=== PATIENT | female | born 1970 | race Caucasian/White ===

== ENCOUNTER 2020-12-06 07:09 | Inpatient (IN) | payer OTHER ==
[~2020-12-06] VITALS: Ht 147.3 cm; Wt 123.8 kg
[2020-12-06 07:22] VITALS: Ht 147.3 cm; Wt 123.8 kg
--- NOTE | 2020-12-06 07:31 | NUR ---
PT PLACED IN BED 7 FOR EVAL. PRIMARY RN JORDYN HOFFMANN.
--- NOTE | 2020-12-06 07:37 | NUR ---
DR. ALVARADO AT BEDSIDE, PT DISCLOSES SHE'S HAD CHEST PAIN FOR 1 HR. REMARKS PROBLEMS WITH SHORTNESS OF BREATH SINCE OCTOBER. STOPPED TAKING HER BLOOD PRESSURE MEDS 2 YEARS AGO
[2020-12-06 07:59] LABS: PLATELET COUNT 272 x10^3mcL (179-408)
--- NOTE | 2020-12-06 07:59 | NUR ---
RADIOLOGY AT BEDSIDE, PCXR IN PROGRESS. BLOODS DRAWN, MEDICATED WITH LASIX ORDERED.
[2020-12-06 08:07] LABS: RED CELL DISTRIBUTION WIDTH 15.6 % (12.3-17.7)
--- NOTE | 2020-12-06 08:09 | NUR ---
PT AMBULATED TO RESTROOM, URINE SPEC OBTAINED. UPON RETURNING TO [facility], WAS EXTREMELY DYSPNEIC AND PLACED BACK ON MONITOR. 02 SAT 95% TELE MONITOR ALSO REAPPLIED. ST IN LOW 100'S , TIME PROGRESSED RHYTHM WENT DOWN TO HIGH 90'S.
[2020-12-06 08:15] LABS: CALCIUM 8.7 mg/dL (8.5-10.1); CARBON DIOXIDE 21.2 mmol/L (21-32); CHLORIDE SERUM 106 mmol/L (98-107); CREATININE SERUM 0.8 mg/dL (0.6-1.0); GFR1 > 60 mL/min; GLUCOSE SERUM 132 mg/dL (74-106); POTASSIUM SERUM 3.6 mmol/L (3.5-5.1); SODIUM SERUM 137 mmol/L (136-145)
[2020-12-06 08:20] LABS: ALKALINE PHOSPHATASE 135 U/L (46-116); ALT/SGPT 46 U/L (14-59); AST/SGOT 29 U/L (15-37); BILIRUBIN TOTAL 0.6 mg/dL (0.20-1.00); TOTAL PROTEIN, SERUM 7.6 g/dL (6.4-8.2)
[2020-12-06 08:29] LABS: ALBUMIN 3.1 g/dL (3.4-5.0)
--- NOTE | 2020-12-06 08:45 | NUR ---
ASST OOB TO RESTROOM, DIURESED EVEN MORE AFTER LASIX IVP
[2020-12-06 08:51] LABS: AMPHETAMINE QUAL UR POSITIVE (See below)
--- NOTE | 2020-12-06 09:17 | NUR ---
COMMODE EMPTIED OF 50
--- NOTE | 2020-12-06 09:45 | NUR ---
PT REMARKS HAS SOME LEG CRAMPING AFTER MEDICATED WITH LASIX. CONTINUES TO DIURESIS WELL
--- NOTE | 2020-12-06 10:12 | NUR ---
BP DOWN SINCE MEDICATED WITH VASOTEC IVP 171/98
[2020-12-06 11:03] LABS: T3 TOTAL 1.35 ng/mL
[2020-12-06 11:05] LABS: MAGNESIUM 1.9 mg/dL (1.8-2.4); PHOSPHOROUS 3.8 mg/dL (2.5-4.9)
[2020-12-06 11:07] LABS: CHOLESTEROL/HDL RATIO 3.3
[2020-12-06 11:12] LABS: FREE T4 1.52 ng/dL (0.76-1.46); FREE THYROXINE INDEX 2.2 ug/dL (1.4-4.5); T4(THYROXINE) 6.2 ug/dL (4.7-13.3)
--- NOTE | 2020-12-06 11:55 | NUR ---
OBSERVED NAPPING QUIETLY AT THIS TIME.
--- NOTE | 2020-12-06 13:15 | NUR ---
LUNCH SERVED AT THIS TIME. SITTING UP AT BEDSIDE EATING.
--- NOTE | 2020-12-06 13:50 | NUR ---
REPORT CALLED TO [facility] IN 2ND FLOOR
[2020-12-06 14:21] VITALS: BP 173/104
--- NOTE | 2020-12-06 14:30 | NUR ---
RECIEVED PT FROM ER NURSE TELE#2. SINUS TACHY HR 102. PT REPORTS NO CHEST PAIN. A/OX4 BREATHING E/U ON RA. IN NO ACUTE RESPIRATORY DISTRESS. PULSE PALPABLE, EDEMA BLE 1+. ABDOMEN SOFT ROUND NONTENDER TO PALPATE. GENERALIZED WEAKNESS BUT AMBULATORY AT BASELINE. PT ABLE TO AMBULATE TO BATHROOM. SKIN IS INTACT. NO FURTHER CONCERNS VOICED AT THIS TIME. BED IN LOWEST POSITION, CALL LIGHT IN REACH. VITALS TAKEN AT ADMISSIONS: HR: 102 RR: 20 BP: 173/104 O2: RA 100%
[2020-12-06 15:00] VITALS: BP 173/104
[2020-12-06 16:42] VITALS: BP 163/103
--- NOTE | 2020-12-06 18:40 | NUR ---
PT SLEEPING EASILY AROUSEABLE. A/OX4, BREATHING E/U ON RA. IN NO ACUTE RESPIRATORY DISTRESS. PT REQUESTS FOR JUICE AND EDUCATED ON STRICT I&O'S D/T FLUID RETENTION. PT UNDERSTOOD AND GAVE SOME ICE CHIPS INSTEAD. PT REPORTS NO PAIN OR SHORTNESS OF BREATH AT THIS TIME. IV TO SL PATENT, CDI. NO FURTHER CONCERNS VOICED AT THIS TIME. BED IN LOWEST POSITION, CALL LIGHT IN REACH.
--- NOTE | 2020-12-06 19:36 | NUR ---
RECIEVED PT FROM AM RN. PT IN BED RESTING A&OX4, BREATHING E/U ON ROOM AIR.TOLERATING WELL, DENIES SOB. LUNG SOUNDS DIMINISHED DILIP. S1S2 HEARD, DENIES CHEST PAIN. BOWEL SOUNDS ACTIVE, ABDOMEN SOFT. PT AMBULATORY, BRP. DENIES WEAKNESS/DIZZINESS WHEN AMBULATING. TELE#2 NSR. PT HAS IV TO LH INTACT AND PATENT, SALINE LOCKED. PT HAS NO CONCERNS AT THIS TIME. CALL LIGHT IN REACH. WILL CONTINUE TO MONITOR.
[2020-12-06 20:30] VITALS: BP 139/70
[2020-12-07 05:44] VITALS: BP 166/92
--- NOTE | 2020-12-07 06:29 | NUR ---
PT IN BED RESTING. PT REMAINED STABLE THROUGHOUT THE NIGHT. NO SIGNIFICANT CHANGES. PT REMAINS ON ROOM AIR, TOLERATING WELL,SATTING WELL DENIES SOB. PTS IV TO LEFT HAND REMAINS INTACT AND PATENT, SALINE LOCKED. ALL NEEDS WERE MET DURING THIS SHIFT. CALL LIGHT IN REACH. WILL ENDORSE CARE TO AM RN.
[2020-12-07 06:45] LABS: CALCIUM 8.1 mg/dL (8.5-10.1); CARBON DIOXIDE 28.8 mmol/L (21-32); CHLORIDE SERUM 106 mmol/L (98-107); GFR1 > 60 mL/min; GLUCOSE SERUM 115 mg/dL (74-106); POTASSIUM SERUM 3.6 mmol/L (3.5-5.1); SODIUM SERUM 140 mmol/L (136-145)
[2020-12-07 07:09] LABS: BASOPHIL % 0.9 % (0.2-1.3); PLATELET COUNT 288 x10^3mcL (179-408)
[2020-12-07 07:14] LABS: RED CELL DISTRIBUTION WIDTH 16.1 % (12.3-17.7)
--- NOTE | 2020-12-07 07:20 | NUR ---
RECIEVED REPORT FROM CORRUGATOR OPERATOR HELPER RN PT IN BED RESTING, PT AAOX4. TELE MONITOR #2 SR O2 SATURATION AT 98% VIA ROOM AIR. IV SITE LT HAND SITE CLEAN, DRY AND INTACT. BED AT LOWEST POSITION CALL LIGHT WITHIN REACH WILL CONTINUE TO MONITOR.
--- NOTE | 2020-12-07 07:58 | NUR ---
RECIEVED REPORT FROM [employer] NET DEVELOPER RN PT IN BED RESTING, PT AAOX4. TELE MONITOR #2 SR O2 SATURATION AT 98% VIA ROOM AIR. IV SITE LT HAND SITE CLEAN, DRY AND INTACT. BED AT LOWEST POSITION CALL LIGHT WITHIN REACH WILL CONTINUE TO MONITOR.
[2020-12-07 08:09] VITALS: BP 166/96
--- NOTE | 2020-12-07 09:00 | NUR ---
RECIEVED CALL FROM [employer] TECH REQUIRED ORDER CHANGE FOR A DVT REQUEST FROM ARTERIAL US TO VASCULAR US. MADE TAMMY FREY AWARE, RECEIVED ORDER FOR VASCULAR ULTRASOUND AND TO DISCONTINUE ARTERIAL US. ORDERS READ BACK AND VERAFIED, NOTED AND CARRIED OUT.
[2020-12-07 11:44] VITALS: BP 144/90
--- NOTE | 2020-12-07 13:38 | NUR ---
PT REQUESTED SHOWER MADE DELI CLERK SHANTE AWARE ORDER PLACED FOR ABILITY TO SHOWER. ORDER READ BACK AND VERAFIED, NOTED, AND CARREIED OUT.
--- NOTE | 2020-12-07 13:41 | NUR ---
ECHO PROCEDURE TAKING PLACE, PT CALM NO ACUTE DISTRESS NOTED AT THIS THIS TIME.
--- NOTE | 2020-12-07 14:00 | NUR ---
VASCULAR US PROCEDURE COMPLETED, PT CALM NO ACUTE DISTRESS NOTED AT THIS THIS TIME. BED AT LOWEST POSITION, CALL LIGHT WITHIN REACH WILL CONTINUE TO MONITOR.
--- NOTE | 2020-12-07 14:15 | NUR ---
ECHO PROCEDURE TAKING PLACE PT CALM, NO ACUTE DISTRESS NOTED. WILL CONTINUE TO MONITOR.
--- NOTE | 2020-12-07 14:45 | NUR ---
ECHO COMPLETED PT CALM NO ACUTE DISTRESS NOTED RESTING IN BED, BED AT LOWEST POSITION, CALL LIGHT WITIN REACH WILL CONTINUE TO MONITOR.
[2020-12-07 16:06] VITALS: BP 151/96
--- NOTE | 2020-12-07 18:43 | NUR ---
PT RESTING IN BED, NO ACUTE DISTRESS NOTED AT THIS TIME. DENIES SOB, DENIES CHEST PAIN/PRESSURE. 02 SATURATION AT 98% VIA ROOM AIR, IV SITE TO LEFT HAND SITE CLEAN, DRY AND INTACT. BED AT LOWEST POSITION, CALL LIGHT WITHIN REACH ALL NEEDS MET. WILL ENDORSE CARE TO INCOMING NURSE.
--- NOTE | 2020-12-07 19:43 | NUR ---
[facility]SPORT PERSONNEL CAME TO TRANSPORT PATIENT TO [facility]. PATIENT ON 5 L N/C. THE WRIST BAND AND LIMB ALERT BAND WERE REMOVED, WELL THE TELE BOX #23 WITH THE CABLES WERE REMOVED TO RETURN TO [facility] SHE WAS TRANSFERED TO THE [facility] [place] WITH LIFT FROM PERSONNEL. SHE UNABLE TO MOVED BY HERSELF. HER BELONGING (EG. PHONE, QUARTER LINING SMOOTHER, AND PINK BLANKET) WAS WITH HER. SHE WAS TRANSFERED WITH A OXYGEN TANK FROM [facility] SETTING ON 6 L. IV @RFA 22G PATENT AND INTACT. NO ACUTE RESPIRATORY DISTRESS NOTED DURING TRANSFER. WILL NEED TO INFORM PIER HAND HELPER ABOUT THE O2 TANK LOAN.
--- NOTE | 2020-12-07 19:59 | NUR ---
PATIENT LYING SUPINE COSBY POSITION. AWAKE WATCHING TV. A/O X 4. FOLLOW COMMANDS. ABLE TO COMMUNICATE HER NEEDS. ON TELE #2. S1 S2 HEARD. PULSE +2 BUE AND BLE. +1 EDEMA ON BILAT LOWER EXTREMITIES. ON RA. LUNG SOUNDS DIMINISHED ON BILAT BASES. BOWEL SOUNDS ACTIVE. HAD BOWEL MOVEMENT DURING DAY SHIFT. AMBULATORY TO BATHROOM TO VOID AND HAVE BM. NO C/O PAIN AT THIS TIME. IV @ LH 20 G PATNET AND INTACT. BED AT THE LOWEST POSITION. CALL LIGHT WITHIN REACH. WILL CONTINUE TO MONITOR.
[2020-12-07 20:44] VITALS: BP 124/62
[2020-12-07 21:40] VITALS: BP 123/52
--- NOTE | 2020-12-07 23:58 | NUR ---
PATIENT RESTING WITH EYES CLOSED LYNG SUPINE. NO ACUTE DISTRESS NOTED. NO C/O PAIN. WILL CONTINUE TO MONITOR.
[2020-12-08 05:19] VITALS: BP 126/64
[2020-12-08 05:39] LABS: PLATELET COUNT 272 x10^3mcL (179-408)
[2020-12-08 05:48] LABS: RED CELL DISTRIBUTION WIDTH 15.8 % (12.3-17.7); rbc morphology (normal/abnorm) NORMAL (NORMAL)
[2020-12-08 06:27] LABS: CALCIUM 8.9 mg/dL (8.5-10.1); CARBON DIOXIDE 29.4 mmol/L (21-32); CREATININE SERUM 1.1 mg/dL (0.6-1.0); MAGNESIUM 2.1 mg/dL (1.8-2.4); POTASSIUM SERUM 3.5 mmol/L (3.5-5.1)
--- NOTE | 2020-12-08 06:33 | NUR ---
PATIENT RESTING WITH EYES CLOSED MOST OF TRADE ECONOMIST. NO ACUTE RESPIRATORY DISTRESS NOTED. ON RA WITH O2 SAT 92-98%. PATIENT WAS COMPLAINING ABOUT PAIN ON HER LEG ONCE DURING NIGHT. IT WAS MEDICATED PER EMAR. STRICT I/O. EDEMATOUS BILAT LEGS, BUT STILL ABLE TO AMBULATE TO BATHROOM. PER PREVIOUS DAY SHIFT NURSE, ECHO WAS DONE YESTERDAY AT 1400, BUT THE RESULT NEVER REPORTED. CA2+ LEVEL WAS 8.1, AND DR MCKENZIE (NIGHT RESIDENT) AWARE ABOUT IT. ALL HER NEEDS WERE MET, INCLUDING GETTING NEW PATIENT'S BELONGING. WILL ENDORSE CONTINUITY CARE TO THE INCOMING DAY SHIFT NURSE.
--- NOTE | 2020-12-08 06:46 | NUR ---
PATIENT RESTING WITH EYES CLOSED MOST OF SPEEDER TENDER. NO ACUTE RESPIRATORY DISTRESS NOTED. ON RA WITH O2 SAT 92-98%. PATIENT WAS COMPLAINING ABOUT PAIN ON HER LEG ONCE DURING NIGHT. IT WAS MEDICATED PER EMAR. STRICT I/O. EDEMATOUS BILAT LEGS, BUT STILL ABLE TO AMBULATE TO BATHROOM. PER PREVIOUS DAY SHIFT NURSE, ECHO WAS DONE YESTERDAY AT 1400, BUT THE RESULT NEVER REPORTED. CA2+ LEVEL WAS 8.1, AND DR MCKENZIE (NIGHT RESIDENT) AWARE ABOUT IT. ALL HER NEEDS WERE MET, INCLUDING GETTING NEW PATIENT'S BELONGING. WILL ENDORSE CONTINUITY CARE TO THE INCOMING DAY SHIFT NURSE.
--- NOTE | 2020-12-08 07:30 | NUR ---
REPORT RECIEVED FROM NIGHT RN. PT IS CURRENTLY AWAKE,WATCHING TV. A/Ox4. PT STATES SHE DID HAVE AN EPISODE OF PAIN LAST NIGHT THAT WAS WENT DOWN WITH TYLENOL. SHE HAD 4 HOURS OF SLEEP. DENIES PAIN AND SOB THIS TIME. LHAND 20g FLUSHES WELL, CDI. PT UNDERSTANDS SHE IS ON STRICT I&Os AND TO DRINK MINIMAL FLUIDS. SAFETY PRECAUTIONS IN PLACE. CALL LIGHT WITHIN REACH. WILL CONTINUE TO MONITOR.
[2020-12-08 08:03] VITALS: BP 140/85
[2020-12-08 11:38] VITALS: BP 132/79
--- NOTE | 2020-12-08 13:30 | NUR ---
PT STATED THAT SHE HAD SOB AFTER COMING BACK FROM THE RESTROOM. PT's SPO2 100% WITH DIM DILIP LUNG SOUNDS, SAME BEFORE. PT STATED SHE HAD ANXIETY ATTACKS BEFORE WHERE SHE WOULD FEEL SOB AND WE JUST HAD A CONVERSATION ABOUT HOW EVERYONE IN HER FAMILY WAS SICK. PT STATES IT IS MOST LIKELY FROM ANXIETY AND SOB WAS RESOLVED ABOUT 3min AFTER CHECKING PT. WILL CONTINUE TO MONITOR.
[2020-12-08 16:09] VITALS: BP 118/68
--- NOTE | 2020-12-08 17:45 | NUR ---
TRIED TO JONH BORDERS OF CELLULITIS BUT BORDERS ARE NOT WELL DEFINED. ANDROID UI DEVELOPER ELIZABETH AGREED THAT BORDERS ARE NOT WELL DEFINED SO WAS NOT ABLE TO JONH BORDER TO TRACK CHANGES. WILL ENDORSE TO NIGHT RN.
--- NOTE | 2020-12-08 19:25 | NUR ---
PT IS CURRENTLY SLEEPING THIS TIME. NO SIGNS OF PAIN AND SOB. PT HAS LHAND IV, CDI. PT HAS BEEN STABLE THROUGHOUT SHIFT. PT DID REPORT SOB WHEN SHE FEELS ANXIOUS. ANXIETY IS TRIGGERED BY HOSPITAL STAY AND NOT BEING OUTSIDE, PT STATES SHE IS EAGER TO GO HOME WHEN CLEARED BY MD. ALL NEEDS WERE MET DUJRING THIS SHIFT. SAFETY PRECAUTIONS IN PLACE. CALL LIGHT WITHIN REACH. WILL ENDORSE CARE TO NIGHT RN.
--- NOTE | 2020-12-08 20:00 | NUR ---
RECEIVED REPORT FROM DAY SHIFT RN. PT RESTING WITH EYES CLOSED AROUSABLE WITH VERBAL STIMULI. NO SOB ON ROOM AIR. BREATHING EVEN AND UNLABORED. NO C/O PAIN. NO DISTRESS NOTED. SAFETY MEASURES IN PLACE. BED IN LOWEST POSITION. SIDE RAILS UP X2. INSTRUCTED PT TO CALL IF ASSISTANCE IS NEEDED. CALL LIGHT WITHIN REACH.
--- NOTE | 2020-12-08 20:25 | NUR ---
PT RESTING COMFORTABLY. NO DISTRESS NOTED. ENDORSED CONTINUITY OF CARE TO JOSIAS PHILLIPS.
--- NOTE | 2020-12-08 20:30 | NUR ---
PATIENT RECEIVED. NO SIGN OF DISTRESS. DENIES CHEST PAIN AND SOB. NSR- HR 80. ON ROOM AIR. BED IN LOWEST POSITION AND CALL LIGHT WITHIN REACH.
[2020-12-08 20:41] VITALS: BP 152/76
[2020-12-09 05:24] VITALS: BP 168/70
--- NOTE | 2020-12-09 06:38 | NUR ---
PATIENT IS RESTING IN BED. DENIES PAIN AT THIS TIME. NO SIGN OF DISTRESS. DENIES CHEST PAIN AND SOB. BP IS 145/80 HR 75. NSR. BED IN LOWEST POSITION AND CALL LIGHT WITHIN REACH. WILL ENDORSE TO AM NURSE.
[2020-12-09 07:21] LABS: PLATELET COUNT 285 x10^3mcL (179-408)
[2020-12-09 07:26] LABS: RED CELL DISTRIBUTION WIDTH 15.3 % (12.3-17.7)
[2020-12-09 07:31] LABS: CALCIUM 8.3 mg/dL (8.5-10.1); CARBON DIOXIDE 27.8 mmol/L (21-32); CHLORIDE SERUM 103 mmol/L (98-107); GFR1 > 60 mL/min; GLUCOSE SERUM 112 mg/dL (74-106); POTASSIUM SERUM 3.8 mmol/L (3.5-5.1); SODIUM SERUM 141 mmol/L (136-145)
--- NOTE | 2020-12-09 07:40 | NUR ---
RECEIVED PT FROM NIGHT NURSE. IN BED RESTING EATING BREAKFAST. AAOX4. BREATHING E/U ON RA. NO SIGNS OF DISTRESS NOTED. PT ON TELE #2. IV ON LH WNL. SALINE LOCK. LAST BM TODAY. +1 EDEMA AND REDNESS TO BLE. CRACKED HEALS NOTED BILATERALY. PT DENIES PAIN/DISCOMFORT AT THE MOMENT. CONTACT AND DROPLET PRECAUTION FOR PUI IN PLACE AND ADHERED TO. CALL LIGHT WITHIN REACH. BED AT LOWEST POSITION. WILL CONTINUE TO MONITOR
[2020-12-09 08:16] VITALS: BP 149/79
--- NOTE | 2020-12-09 10:31 | NUR ---
PT C/O SOB. SAT AT 99% ON RA. HR: 69. ENCOURAGED PT TO LEAN FOWARD ON BEDSIDE TABLE AND TAKE DEEP BREATHS. PUT HER ON 3L NC FOR COMFORT. PT STATES SOB OF BREATHE IMPROVE AFTER IMPLEMENTATION. WILL CONTINUE TO MONITOR.
[2020-12-09 13:00] VITALS: BP 146/89
[2020-12-09] MEDS ORDERED: CARVEDILOL12.5 M1 PO (15:41)
[2020-12-09] MEDS ORDERED: LIPI20 PO (15:41)
[2020-12-09] MEDS ORDERED: ZES10 PO (15:42)
[2020-12-09] MEDS ORDERED: ECO81 PO (15:42)
[2020-12-09] MEDS ORDERED: L40 PO (15:43)
[2020-12-09] MEDS ORDERED: CLEOCIN HCL150 MG PO (15:44)
--- NOTE | 2020-12-09 17:54 | NUR ---
PT RECEIVED HOME DISCHARGE INSTRUCTIONS VERBAL AMD WRITTEN. GIVEN MEDICATION/PRESCRIPTION EDUCATION. MADE AWARE OF SCHEDULED F/U APPOINTMENT WITH PCP. PT VERBALIZED UNDERSTANDING OF INSTRUCTIONS. MEDICATION SENT TO PHARMACY. IV DC. CATHETER INTACT. EXPLOSIVE ORDNANCE HANDLER TOOK DOWN PT ON A WHEELCHAIR WITH BELONGING IN HAND AND FREE OF ANY APPARENT DISTRESS. DENIED PAIN/DISCOMFORT AT TIME OF DISCHARGE.
--- NOTE | 2020-12-09 18:13 | NUR ---
NURSING CO-SIGN THE DOCUMENTATION ENTERED BY THE RN HAS BEEN REVIEWED. REVIEWED/CO-SIGNED BY: Libby Zaidi DOCUMENTATION DONE BY: Darlene Munoz
== END 2020-12-09 17:08 | disposition home or self-care (01) | DRG 812 ==
LOC: ED 07:09 → DU 10:28
PROVIDERS: Emergency Medicine; Family Medicine; ADMIT Internal Medicine; ATTEND Internal Medicine
DX: T43.621A Poisoning by amphetamines, accidental (unintentional), initial encounter (principal); I50.43 Acute on chronic combined systolic (congestive) and diastolic (congestive) heart failure; Z68.43 Body mass index [BMI] 50.0-59.9, adult; I42.9 Cardiomyopathy, unspecified; I11.0 Hypertensive heart disease with heart failure; E66.9 Obesity, unspecified; F15.10 Other stimulant abuse, uncomplicated; F17.210 Nicotine dependence, cigarettes, uncomplicated; Z79.899 Other long term (current) drug therapy; Z79.891 Long term (current) use of opiate analgesic; Z79.82 Long term (current) use of aspirin; Z98.891 History of uterine scar from previous surgery; Z71.51 Drug abuse counseling and surveillance of drug abuser; Z91.19 Patient's noncompliance with other medical treatment and regimen; Y92.89 Other specified places as the place of occurrence of the external cause
CPT/HCPCS: 83880; 84439; G0378; J1940; J3490; J7040; J7042; J7050; U0003